=== PATIENT | female | born 2000 | race Caucasian/White ===

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

== ENCOUNTER 2020-04-12 16:18 | Emergency (ER) | payer MEDICAID ==
[~2020-04-12] VITALS: Ht 154.9 cm; Wt 60.9 kg
[2020-04-12 16:29] VITALS: BP 116/68
--- NOTE | 2020-04-12 16:35 | NUR ---
CALL TO L&D FOR FHT EVAL,
--- NOTE | 2020-04-12 16:46 | NUR ---
L&D IN SEEING PT AT THIS TIME.
[2020-04-12 17:41] LABS: MICROSCOPIC NOT IND
--- NOTE | 2020-04-12 17:57 | NUR ---
PT HAS LEFT WITHOUT DC INSTRUCTIONS. PT STATED SHE NEEDS TO EAT NOW. PT WALKED TO DC DESK TO CHECK OUT. ERP AWARE.
--- NOTE | 2020-04-12 18:07 | NUR ---
PT WAITED FOR DC INSTRUCTIONS AND RX. PT LEFT WITH DC INSTRUCTIONS c RX
== END 2020-04-12 18:05 | disposition home or self-care (01) ==
LOC: ED 17:20
DX: O26.892 Other specified pregnancy related conditions, second trimester (principal); R11.0 Nausea; Z3A.20 20 weeks gestation of pregnancy
CPT/HCPCS: 81003; 99283